=== PATIENT | female | born 1955 | race Caucasian/White ===

== ENCOUNTER 2017-02-16 15:06 | Emergency (ER) | payer BC ==
--- NOTE | 2017-02-16 15:20 | Emergency Department Record ---
History of Present Illness - General Chief Complaint: Fall Injury Stated Complaint: FELL ON ICE,LT SHOULDER/COLLAR BONE,ELBOW PAIN Time Seen by Provider: 02/16/17 15:15 Source: Patient Mode of Arrival: Ambulatory Limitations: No limitations - History of Present Illness Initial Comments: 62 yo female presents after a fall. She fell on on the ice. She landed on her left shoulder, ribs and elbow. She did not hit her head. No LOC. NO neck pain. She has full ROM but the pain has continued. NO abdominal pain. No abdominal tenderness. No lower leg tenderness. No numbness or tingling. Complaint: Fall -: Days(s) (4) Fall From: Other (sliped on ice) When Fall Occurred: # Days [employer] (4) Place Fall Occurred: Street Loss of Consciousness: None Prolonged Down Time?: No Symptoms Prior to Fall: None Location: Chest, Other Location - Extremities: Left: Shoulder, Elbow Severity: Moderate Quality: Aching Context: Tripped/slipped Associated Symptoms: Denies - [place] Coma Scale Eye Response: (4) Open spontaneously Motor Response: (6) Obeys commands Verbal Response: (5) Oriented [place] Total: 15 - Related Data Home Medications Medication Instructions Recorded Confirmed Last Taken Nitroglycerin [Nitrostat] 0.4 mg SL ASDIR 02/16/17 02/16/17 Unknown Allergies Allergy/AdvReac Type Severity Reaction Status Date / Time codeine Allergy Severe ANAPHYLAXIS Verified 02/16/17 15:25 hydrocodone Allergy Severe ANAPHYLAXIS Verified 02/16/17 15:25 Iodinated Contrast- Oral and Allergy Severe SWELLING Verified 02/16/17 15:25 IV Dye OF THE FACE atenolol [From Tenormin] Allergy Intermediate DIFFICULTY Verified 02/16/17 15:25 BREATHING carbamazepine [From Tegretol] Allergy Intermediate HIVES Verified 02/16/17 15:25 tape AdvReac Mild SKIN Uncoded 09/24/14 15:54 IRRITATION Review of Systems Constitutional: Denies: Chills, Fever, Malaise, Weakness Eyes: Denies: Eye discharge ENT: Denies: Congestion, Throat pain Respiratory: Denies: Cough, Dyspnea, Hemoptysis, Wheezes Cardiovascular: Reports: Chest pain (left ribs). Denies: Edema, Syncope Endocrine: Denies: Fatigue Gastrointestinal: Denies: Abdominal pain, Diarrhea, Nausea, Vomiting Genitourinary: Denies: Dysuria, Hematuria, Urgency Musculoskeletal: Reports: Arthralgia, Back pain, Joint swelling, Myalgia Skin: Reports: Bruising. Denies: Change in color Neurological: Denies: Confusion, Headache, Numbness, Tremors, Vertigo, Weakness Psychiatric: Denies: Anxiety Hematological/Lymphatic: Denies: Blood Clots, Easy bleeding, Easy bruising, Swollen glands Physical Exam - General General Appearance: Alert, Oriented x3, Cooperative, No acute distress Limitations: No limitations - Head Head exam: Atraumatic, Normocephalic, Normal inspection - Eye Eye exam: Normal appearance. negative: Conjunctival injection, Periorbital swelling, Periorbital tenderness - ENT ENT exam: Normal exam, Mucous membranes moist Ear exam: Normal external inspection Nasal Exam: Normal inspection Mouth exam: Normal external inspection - Neck Neck exam: Normal inspection, Full ROM. negative: Meningismus, Tenderness - Respiratory Respiratory exam: Normal lung sounds bilaterally, Chest wall tenderness (left mid lateral ribs are tender, no crepitus). negative: Accessory muscle use, Prolonged expiratory, Rhonchi, Stridor, Wheezes - Cardiovascular Cardiovascular Exam: Regular rate, Normal rhythm, Normal heart sounds - GI/Abdominal GI/Abdominal exam: Soft. negative: Guarding, Rebound, Rigid, Tenderness - Rectal Rectal exam: Deferred - exam: Deferred - Extremities Extremities exam: Full ROM, Joint swelling, Normal capillary refill, Tenderness. negative: Normal inspection (bruising to the elbow) Image of Full Body: 1 - mild swellling to the shoulder, tendern anterior, the ROM is intact 2 - bruising to the posterior left elbow, full ROM, tender diffusely 3 - tender mid lateral posterior chest - Back Back exam: Reports: Normal inspection, Full ROM. Denies: CVA tenderness (R), CVA tenderness (L), Muscle spasm, Tenderness, Vertebral tenderness - Neurological Neurological exam: Alert, Oriented X3 - Psychiatric Psychiatric exam: Normal affect, Normal mood - Skin Skin exam: Dry, Intact, Normal color, Warm, Other (bruising to the elbow) Course - Reevaluation(s) Reevaluation #1: The XR of the ribs, shoulder and elbow were negative for acute fracture We discussed the results, close follow up and reasons to return to the ED 02/16/17 16:23 Disposition Disposition: Discharge Clinical Impression: Shoulder contusion Qualifiers: Encounter type: initial encounter Laterality: left Qualified Code(s): S40.012A - Contusion of left shoulder, initial encounter Elbow contusion Qualifiers: Encounter type: initial encounter Laterality: left Qualified Code(s): S50.02XA - Contusion of left elbow, initial encounter Contusion of rib Qualifiers: Encounter type: initial encounter Laterality: left Qualified Code(s): S20.212A - Contusion of left front wall of thorax, initial encounter Disposition: Home, Self-Care Condition: (1) Good Additional Instructions: Ice to any sore areas Call your doctor for a recheck of your injuries this week Return to the ER if worse, new symptoms or concerns Forms: Patient Portal Access Time of Disposition: 16:24 Quality - Quality Measures Quality Measures: N/A - Blood Pressure Screening Does Patient Have Any of the Following: No Blood Pressure Classification: Pre-Hypertensive BP Reading Systolic Measurement: 135 Diastolic Measurement: 79 Screening for High Blood Pressure: < Pre-Hypertensive BP, F/U Documented > [ [id number]] Pre-Hypertensive Follow-up Interventions: Referral to alternative/primary care provider.
--- NOTE | 2017-02-17 07:57 | RADIOLOGY REPORT ---
EXAM: LEFT ELBOW HISTORY: FELL ON ICE. LEFT ELBOW PAIN AND BRUISING. TECHNIQUE: Four views of the left elbow were obtained. Comparison: None. Encounter: Initial. FINDINGS: The bones appear intact. There is no acute fracture, dislocation, or joint effusion. Mild superficial soft tissue swelling is present posterior to the proximal ulna. IMPRESSION: 1. POSTERIOR SOFT TISSUE SWELLING. 2. NO ACUTE FRACTURE OR JOINT EFFUSION. JOB NUMBER: [id number] MTDD
--- NOTE | 2017-02-17 08:00 | RADIOLOGY REPORT ---
EXAM: LEFT SHOULDER HISTORY: FELL ON ICE. LEFT SHOULDER PAIN/ TECHNIQUE: Three views of the left shoulder were obtained. Comparison: Previous chest x-ray dated 11/24/15. Encounter: Initial. FINDINGS: There are mild hypertrophic degenerative changes of the acromioclavicular joint. The bones and joints are otherwise normal. There is no acute fracture or dislocation. IMPRESSION: 1. NO ACUTE LEFT SHOULDER PATHOLOGY. 2. MILD ARTHRITIC CHANGES OF THE ACROMIOCLAVICULAR JOINT. JOB NUMBER: [id number] MTDD
--- NOTE | 2017-02-17 08:03 | RADIOLOGY REPORT ---
EXAM: LEFT RIBS WITH PA CHEST HISTORY: LEFT SIDED CHEST PAIN STATUS POST FALL ON ICE. TECHNIQUE: An AP view of the chest and six views of the left ribs were obtained. Comparison: Previous chest x-ray dated 12/16/16. Encounter: Initial. FINDINGS: The heart, mediastinum, and pulmonary vasculature are normal. The lungs are clear. There is no pneumothorax or effusion. The bones appear intact. Detailed views of the left ribs appear normal. There is no visible rib fracture or destructive process. IMPRESSION: NO ACUTE CHEST OR RIB PATHOLOGY IDENTIFIED. JOB NUMBER: [id number] MTDD
== END 2017-02-16 16:33 | disposition home or self-care (01) ==
LOC: ER 15:06
DX: S40.012A Contusion of left shoulder, initial encounter (principal); S50.02XA Contusion of left elbow, initial encounter; S20.212A Contusion of left front wall of thorax, initial encounter; W00.0XXA Fall on same level due to ice and snow, initial encounter; Y92.410 Unspecified street and highway as the place of occurrence of the external cause
CPT/HCPCS: 99283; 99284